=== PATIENT | female | born 1935 | race Caucasian/White ===

== ENCOUNTER 2016-11-04 22:02 | Inpatient (IN) | payer MEDICARE, MEDICAID ==
[~2016-11-04] VITALS: Ht 154.9 cm; Wt 73.4 kg
[~2016-11-04 22:02] MED LIST: ALLO100T30 PO; ASPI-621 PO; ASPI325T4 PO; ATOR40TA PO; BUSP10TA PO; CARV-39 PO; CLOP75TA PO; DIAZ5TAB PO; DOCU-30 PO; DOXY100T9 PO; DULO60CA7 PO; FURO20TA3 PO; GABA-827 PO; HYDR-3144 PO; HYDR20TA19 PO; IBUP-1222 PO; INSU100I13 SQ; INSU100I18 SQ-INSULIN; IPRA3AMP INH; ISOS30TA8 PO; LIDO700A30 TP; LORA-170 PO; MECL-76 PO; METF10002 PO; METF500T4 PO; METH500T7 PO; NIFE20CA PO; NITR0.4T SL; OLOP2.5D OP; OMEP20TA62 PO; PRED20TA PO; RANI150T8 PO; SULF1TAB24 PO; THYR48.7 PO; THYR60TA PO; THYR90TA PO; TIZA2CAP PO; VALS160T3 PO; lidocaine patch TP
[2016-11-04] MEDS ORDERED: SODIUM CHLORIDE 0.9% 1,000 ML IV ONE (22:44)
[2016-11-04] MEDS ORDERED: SODIUM CHLORIDE 0.9% 1,000ML IVBOLUS ONE (23:00)
[2016-11-04] MEDS ORDERED: ACETAMINOPHEN 500 MG TABLET PO ONE (23:00)
[2016-11-04] MEDS ORDERED: SODIUM CHLORIDE FLUSH 10ML SYR IVF ONE (23:00)
[2016-11-04] MEDS ORDERED: ONDANSETRON 2MG/ML, 2ML IVPush ONE (23:00)
[2016-11-04 23:36] LABS: PATH.CAST-FLAG NOT PRESENT; SPERM-FLAG NOT PRESENT; SRC-FLAG NOT PRESENT; XTAL-FLAG NOT PRESENT; YLC-FLAG NOT PRESENT
[2016-11-04 23:48] LABS: HEMATOCRIT 31.2 % (34.6-47.8); HEMOGLOBIN 9.9 g/dL (11.7-16.4)
[2016-11-04] MEDS ORDERED: CEFTRIAXONE PMX 1GM/50ML 50 ML ONE (23:53)
[2016-11-04] MEDS ORDERED: ONDANSETRON 2MG/ML, 2ML ONE (23:53)
[2016-11-04] MEDS ORDERED: ACETAMINOPHEN 500 MG TABLET ONE (23:53)
[2016-11-05] MEDS ORDERED: CEFTRIAXONE PMX 1GM/50ML 50 ML IV ONE
[2016-11-05 00:01] LABS: ASPARTATE AMINO TRANSFERASE 25 U/L (15-37); BLOOD UREA NITROGEN 22 mg/dL (7-18)
[2016-11-05] MEDS ORDERED: SODIUM CHLORIDE 0.9% 1,000ML IVBOLUS ONE (00:30)
[2016-11-05] MEDS: SODIUM CHLORIDE 0.9% 1,000 ML IV SCH ×2 (00:35→09:29)
[2016-11-05] MEDS ORDERED: ACETAMINOPHEN 325 MG TABLET PO PRN (01:00)
[2016-11-05] MEDS ORDERED: ONDANSETRON 2MG/ML, 2ML IVPush PRN (01:00)
[2016-11-05] MEDS: HEPARIN 5,000 UNITS/ML, 1ML SQ SCH ×3 (01:00→17:00)
[2016-11-05 03:00] VITALS: BP 95/51
[2016-11-05] MEDS ORDERED: CLOP75TA22 PO (03:49)
[2016-11-05] MEDS: CEFTRIAXONE PMX 1GM/50ML 50 ML IV SCH (09:29)
[2016-11-05 14:58] VITALS: BP 121/83
[2016-11-05 20:16] VITALS: BP 157/77
[2016-11-05] MEDS: GABAPENTIN 400 MG CAPSULE PO SCH (20:19)
[2016-11-05] MEDS: ALLOPURINOL 100 MG TABLET PO SCH (20:19)
[2016-11-05] MEDS: CARVEDILOL 25 MG TABLET PO SCH (20:19)
[2016-11-05] MEDS ORDERED: FAMOTIDINE 20 MG TABLET PO SCH (21:00)
[2016-11-06] MEDS: HEPARIN 5,000 UNITS/ML, 1ML SQ SCH ×3 (01:29→17:00)
[2016-11-06] MEDS: SODIUM CHLORIDE 0.9% 1,000 ML IV SCH ×2 (01:29→08:15)
[2016-11-06 01:36] VITALS: BP 144/66
[2016-11-06 05:06] LABS: HEMATOCRIT 28.6 % (34.6-47.8); HEMOGLOBIN 9.2 g/dL (11.7-16.4); WHITE BLOOD COUNT 7.3 x10^3/uL (3.4-10)
[2016-11-06 05:16] LABS: BLOOD UREA NITROGEN 14 mg/dL (7-18)
[2016-11-06] MEDS ORDERED: MAGNESIUM SULFATE PMX 4GM/100M 100 ML IV ONE (06:00)
[2016-11-06 06:53] VITALS: BP 151/81
[2016-11-06] MEDS: HYDROCODONE BITARTRATE 20 MG PO SCH (09:00)
[2016-11-06] MEDS ORDERED: POTASSIUM CHLORIDE 20 MEQ TAB.ER.PRT PO ONE (09:00)
[2016-11-06] MEDS: NIFEDIPINE 30 MG PO SCH ×2 (09:00→21:00)
[2016-11-06] MEDS: CEFTRIAXONE PMX 1GM/50ML 50 ML IV SCH (09:31)
[2016-11-06] MEDS: HYDROcodone/APAP 10/325 MG TABLET PO PRN ×2 (09:31→16:46)
[2016-11-06] MEDS: ALLOPURINOL 100 MG TABLET PO SCH ×2 (09:31→21:20)
[2016-11-06] MEDS: FAMOTIDINE 20 MG TABLET PO SCH (09:32)
[2016-11-06] MEDS: CARVEDILOL 25 MG TABLET PO SCH ×2 (09:32→21:20)
[2016-11-06] MEDS: BUSPIRONE 10 MG TABLET PO SCH (09:32)
[2016-11-06] MEDS: ISOSORBIDE MONONITRATE ER 30 MG TABLET PO SCH (10:57)
[2016-11-06] MEDS: CLOPIDOGREL 75 MG TABLET PO SCH (10:59)
[2016-11-06] MEDS: MECLIZINE CHEWABLE 25 MG TAB PO SCH ×3 (11:00→21:20)
[2016-11-06] MEDS: METHOCARBAMOL 500 MG TABLET PO PRN ×2 (11:01→21:21)
[2016-11-06] MEDS: VALSARTAN 160 MG TABLET PO SCH (11:02)
[2016-11-06 13:30] VITALS: BP 142/76
[2016-11-06 19:18] VITALS: BP 137/72
[2016-11-06] MEDS ORDERED: ACETAMINOPHEN 325 MG TABLET PO PRN (20:30)
[2016-11-06] MEDS: ATORVASTATIN 40 MG TABLET PO SCH (21:20)
[2016-11-06] MEDS: GABAPENTIN 400 MG CAPSULE PO SCH (21:20)
[2016-11-07] MEDS: HEPARIN 5,000 UNITS/ML, 1ML SQ SCH ×3 (01:00→17:00)
[2016-11-07 01:10] VITALS: BP 129/68
[2016-11-07] MEDS: SODIUM CHLORIDE 0.9% 1,000 ML IV SCH ×2 (03:24→10:22)
[2016-11-07] MEDS: MECLIZINE CHEWABLE 25 MG TAB PO SCH ×4 (05:49→19:49)
[2016-11-07 05:59] LABS: BLOOD UREA NITROGEN 12 mg/dL (7-18)
[2016-11-07 07:02] VITALS: BP 165/74
[2016-11-07] MEDS: HYDROCODONE BITARTRATE 20 MG PO SCH (09:00)
[2016-11-07] MEDS: NIFEDIPINE 30 MG PO SCH ×2 (09:00→19:53)
[2016-11-07] MEDS: VALSARTAN 160 MG TABLET PO SCH (10:25)
[2016-11-07] MEDS: FAMOTIDINE 20 MG TABLET PO SCH (10:25)
[2016-11-07] MEDS: HYDROcodone/APAP 10/325 MG TABLET PO PRN ×2 (10:25→21:31)
[2016-11-07] MEDS: ALLOPURINOL 100 MG TABLET PO SCH ×2 (10:25→19:49)
[2016-11-07] MEDS: CEFTRIAXONE PMX 1GM/50ML 50 ML IV SCH (10:25)
[2016-11-07] MEDS: CLOPIDOGREL 75 MG TABLET PO SCH (10:25)
[2016-11-07] MEDS: ISOSORBIDE MONONITRATE ER 30 MG TABLET PO SCH (10:26)
[2016-11-07] MEDS: CARVEDILOL 25 MG TABLET PO SCH ×2 (10:26→19:49)
[2016-11-07] MEDS: BUSPIRONE 10 MG TABLET PO SCH (10:28)
[2016-11-07 12:50] VITALS: BP 148/70
[2016-11-07 19:09] VITALS: BP 158/72
[2016-11-07] MEDS: ATORVASTATIN 40 MG TABLET PO SCH (19:49)
[2016-11-07] MEDS: GABAPENTIN 400 MG CAPSULE PO SCH (19:49)
[2016-11-07] MEDS: METHOCARBAMOL 500 MG TABLET PO PRN (19:49)
[2016-11-07] MEDS ORDERED: TEMAZEPAM 15 MG CAPSULE PO PRN (23:30)
[2016-11-08] MEDS: SODIUM CHLORIDE 0.9% 1,000 ML IV SCH ×2 (00:49→08:26)
[2016-11-08] MEDS: HEPARIN 5,000 UNITS/ML, 1ML SQ SCH ×2 (00:49→08:27)
[2016-11-08 01:08] VITALS: BP 147/68
[2016-11-08] MEDS: MECLIZINE CHEWABLE 25 MG TAB PO SCH (05:43)
[2016-11-08 07:03] VITALS: BP 163/71
[2016-11-08] MEDS ORDERED: CEFD300C37 PO (08:17)
[2016-11-08] MEDS: FAMOTIDINE 20 MG TABLET PO SCH (08:25)
[2016-11-08] MEDS: VALSARTAN 160 MG TABLET PO SCH (08:25)
[2016-11-08] MEDS: CEFTRIAXONE PMX 1GM/50ML 50 ML IV SCH (08:25)
[2016-11-08] MEDS: ALLOPURINOL 100 MG TABLET PO SCH (08:25)
[2016-11-08] MEDS: ISOSORBIDE MONONITRATE ER 30 MG TABLET PO SCH (08:25)
[2016-11-08] MEDS: CLOPIDOGREL 75 MG TABLET PO SCH (08:25)
[2016-11-08] MEDS: HYDROCODONE BITARTRATE 20 MG PO SCH (08:26)
[2016-11-08] MEDS: CARVEDILOL 25 MG TABLET PO SCH (08:26)
[2016-11-08] MEDS: NIFEDIPINE 30 MG PO SCH (08:26)
[2016-11-08] MEDS: BUSPIRONE 10 MG TABLET PO SCH (08:26)
== END 2016-11-08 12:14 | disposition home or self-care (01) | DRG 871 ==
LOC: ED 11-05 00:30 → EDIP 11-05 00:40 → 3NE 11-05 01:45
PROVIDERS: ADMIT Internal Medicine; ATTEND Internal Medicine
PROC: 0T9B70Z Drainage of Bladder with Drainage Device, Via Natural or Artificial Opening (ICD-10-PCS; principal; 2016-11-04)
DX: A41.9 Sepsis, unspecified organism (principal); G93.40 Encephalopathy, unspecified; E44.1 Mild protein-calorie malnutrition; N17.9 Acute kidney failure, unspecified; E11.40 Type 2 diabetes mellitus with diabetic neuropathy, unspecified; E78.5 Hyperlipidemia, unspecified; F17.210 Nicotine dependence, cigarettes, uncomplicated; G89.4 Chronic pain syndrome; I10 Essential (primary) hypertension; I25.10 Atherosclerotic heart disease of native coronary artery without angina pectoris; N30.91 Cystitis, unspecified with hematuria; Z68.30 Body mass index [BMI] 30.0-30.9, adult; Z79.4 Long term (current) use of insulin; Z95.1 Presence of aortocoronary bypass graft; Z88.0 Allergy status to penicillin; Z88.1 Allergy status to other antibiotic agents; Z91.040 Latex allergy status
CPT/HCPCS: 36415; 71010; 80048; 80053; 81001; 82962; 83605; 83735; 84145; 85025; 85610; 85730; 87040; 87077; 87086; 87186; 96374; J0696; J1644; J2405; J3475; J7030

== ENCOUNTER 2018-02-15 12:24 | Emergency (ER) | payer MEDICARE, MEDICAID ==
[~2018-02-15] VITALS: Ht 157.5 cm; Wt 54.0 kg
[~2018-02-15 12:24] MED LIST changes: +ASPI325T17 PO; -ASPI325T4 PO; +CEFD300C37 PO; +CLOP75TA52 PO; +DOCU-131 PO; -DOCU-30 PO; -HYDR-3144 PO; +HYDR-3245 PO; -IPRA3AMP INH; +IPRA3AMP30 INH; +METF500T17 PO; -METF500T4 PO; +RANI150T23 PO; -RANI150T8 PO
[2018-02-15 13:15] LABS: BASOPHILS # (AUTO) 0.02 x10^3/uL (0-0.1); BASOPHILS % (AUTO) 0 % (0-1); EOSINOPHILS # (AUTO) 0.25 x10^3/uL (0-0.4); EOSINOPHILS % (AUTO) 3 % (1-7); LYMPHOCYTES % (AUTO) 19 % (22-44); MD NO; MEAN CORPUSCULAR HEMOGLOBIN 30.4 pg (27.0-34.8); MEAN CORPUSCULAR HGB CONC 32.3 g/dL (32.4-35.8); MEAN CORPUSCULAR VOLUME 94.3 fL (80-100); MEAN PLATELET VOLUME 7.2 fL (7.4-10.4); MONOCYTES # (AUTO) 0.84 x10^3/uL (0.2-0.8); MONOCYTES % (AUTO) 10 % (2-9); NEUTROPHILS # (AUTO) 5.52 x10^3/uL (1.8-6.8); NEUTROPHILS % (AUTO) 67 % (42-75); PLATELET COUNT 300 x10^3/uL (130-400); RED BLOOD COUNT 3.09 x10^6/uL (3.82-5.3); RED CELL DISTRIBUTION WIDTH 20.9 % (9.6-15.2)
[2018-02-15 13:26] LABS: ALBUMIN 3.1 g/dL (3.4-5.0); ANION GAP 8 mmol/L (5-15); CALCIUM 9.4 mg/dL (8.5-10.1); CHLORIDE 113 mmol/L (98-107); CREATININE 1.78 mg/dL (0.55-1.02)
[2018-02-15 13:27] LABS: INTERNATIONAL NORMALIZED RATIO 1.02 (0.93-1.1); PROTHROMBIN TIME 10.6 Seconds (9.6-11.5)
[2018-02-15 15:55] VITALS: BP 103/51
== END 2018-02-15 15:58 | disposition home or self-care (01) ==
LOC: ED 14:57
DX: K92.2 Gastrointestinal hemorrhage, unspecified (principal); F17.200 Nicotine dependence, unspecified, uncomplicated; E11.9 Type 2 diabetes mellitus without complications; I10 Essential (primary) hypertension; E78.5 Hyperlipidemia, unspecified; I25.10 Atherosclerotic heart disease of native coronary artery without angina pectoris; E07.9 Disorder of thyroid, unspecified; Z72.9 Problem related to lifestyle, unspecified; Z88.0 Allergy status to penicillin; Z88.1 Allergy status to other antibiotic agents; Z90.49 Acquired absence of other specified parts of digestive tract; Z90.89 Acquired absence of other organs
CPT/HCPCS: 36415; 71046; 80048; 82040; 85025; 85610; 85730; 99285

== ENCOUNTER → 2019-10-23 | Outpatient (CLI) | payer MEDICARE, MEDICAID ==
[~2019-10-23] MED LIST changes: +ACID1TAB7 PO; +ASPI-515 PO; -ASPI-621 PO; +ASPI81TA45 PO; +DOXY-162 PO; -DOXY100T9 PO; +DULO60CA56 PO; +HYDR-3240 PO; +LOSA100T2 PO; +NICO-487 TD; -NITR0.4T SL; +NITR0.4T41 SL; -OLOP2.5D OP; +OLOP2.5D12 OP; +PANT20TA2 PO; +POLY17PO5 PO; +RANI-467 PO; -RANI150T23 PO; +SPIR25TA5 PO; +TIZA4CAP PO
== END | disposition home or self-care (01) ==
LOC: CFH 15:06 → EDSTATUS 15:30
PROVIDERS: ATTEND Pain Medicine Interventional Pain Medicine
DX: S32.019A Unspecified fracture of first lumbar vertebra, initial encounter for closed fracture (principal); M47.815 Spondylosis without myelopathy or radiculopathy, thoracolumbar region; M47.816 Spondylosis without myelopathy or radiculopathy, lumbar region; M48.061 Spinal stenosis, lumbar region without neurogenic claudication; M43.16 Spondylolisthesis, lumbar region; X58.XXXA Exposure to other specified factors, initial encounter; Y93.89 Activity, other specified; Y92.89 Other specified places as the place of occurrence of the external cause; Y99.8 Other external cause status
CPT/HCPCS: 72146; 72148

== ENCOUNTER 2020-08-29 11:58 | Inpatient (IN) | payer MEDICARE, MEDICAID ==
[~2020-08-29] VITALS: Ht 154.9 cm; Wt 60.1 kg
[~2020-08-29 11:58] MED LIST changes: -ASPI-515 PO; +ASPI-963 PO; +HYDR-2214 PO; -HYDR-3240 PO; -HYDR-3245 PO; +HYDR1TAB53 PO; +METH-639 PO; -METH500T7 PO; -NICO-487 TD; +NICO-587 TD; +SULF-23 PO; -SULF1TAB24 PO
--- NOTE | 2020-08-29 12:20 | NUR ---
Pt brought from lobby to room 19 by wheelchair for triage in room. Pt speaks limited Togolese and her son is will be brought back to assist with translation when he gets back from parking the car. avionics repair technician with this RN to assist with movement of pt from wheelchair to bed.
--- NOTE | 2020-08-29 12:25 | NUR ---
Son arrived at bedside, states pt has dx of proximal R femur fx from fall 2 weeks ago with pain intractable at home with PO meds as reason for coming in today. Supposed to follow up with ortho, trying to avoid surgery, and pt able to transfer herself with minimal assistance. Good distal CMS on R foot present on assessment. Pt changed into gown and placed on bedside monitor. Call light in reach, warm blankets and char filter operator socks provided, and senior quality manager including Med Rec completed.
[2020-08-29] MEDS ORDERED: NIFE10CA49 PO (12:33)
[2020-08-29] MEDS ORDERED: LEVO88TA4 PO (12:33)
[2020-08-29] MEDS ORDERED: CHOL-6 PO (12:33)
[2020-08-29] MEDS ORDERED: ONDA4TAB7 PO (12:33)
[2020-08-29] MEDS ORDERED: METF500T17 PO (12:33)
[2020-08-29] MEDS ORDERED: oxygen INH (12:33)
[2020-08-29] MEDS ORDERED: HYDR40TA PO (12:33)
[2020-08-29] MEDS ORDERED: LIOT5TAB11 PO (12:33)
--- NOTE | 2020-08-29 13:02 | NUR ---
Pt still awaiting MD exam at this time.
[2020-08-29] MEDS ORDERED: SODIUM CHLORIDE FLUSH 10ML SYR IVF ONE (13:30)
[2020-08-29] MEDS ORDERED: MORPHINE SULFATE 4 MG/ML, 1ML IVPush ONE (13:30)
[2020-08-29] MEDS ORDERED: ONDANSETRON 2MG/ML, 2ML IVPush ONE (13:30)
[2020-08-29] MEDS ORDERED: ONDANSETRON 2MG/ML, 2ML ONE (13:34)
[2020-08-29] MEDS ORDERED: MORPHINE SULFATE 4 MG/ML, 1ML ONE ×2 (13:35→16:08)
--- NOTE | 2020-08-29 13:48 | NUR ---
IV started with aseptic technique and Zofran given as ordered. Morphine started with 4mg IVP at this time to see how pt responds before giving her the other 4mg as ordered. Son remains at bedside. Pt asking for food/coffee.
--- NOTE | 2020-08-29 13:55 | NUR ---
Pain still 8/10, so other 4mg for total of 8m IVP Morphine given.
--- NOTE | 2020-08-29 14:08 | NUR ---
Pain is now rated 6/10 after pain meds with no nausea. MD states no food/drink until after radiology exams. Son and pt notified and aware of pending xrays.
--- NOTE | 2020-08-29 15:21 | NUR ---
at bedside for discussion of results and plan of care.
[2020-08-29] MEDS ORDERED: MORPHINE SULFATE 4 MG/ML, 1ML IVPush PRN (15:30)
[2020-08-29 15:46] LABS: BASOPHILS % (AUTO) 1 % (0-1); EOSINOPHILS % (AUTO) 2 % (1-7); LYMPHOCYTES % (AUTO) 21 % (22-44); MEAN CORPUSCULAR HEMOGLOBIN 33.3 pg (27.0-34.8); MEAN CORPUSCULAR HGB CONC 33.3 g/dL (32.4-35.8); MEAN PLATELET VOLUME 6.9 fL (7.4-10.4); MONOCYTES % (AUTO) 10 % (2-9); NEUTROPHILS % (AUTO) 67 % (42-75); PLATELET COUNT 448 x10^3/uL (130-400); RED BLOOD COUNT 3.78 x10^6/uL (3.82-5.3); RED CELL DISTRIBUTION WIDTH 14.1 % (9.6-15.2)
[2020-08-29 15:47] LABS: MD NO
[2020-08-29 15:58] LABS: ANION GAP 5 mmol/L (5-15); CALCIUM 9.9 mg/dL (8.5-10.1); CHLORIDE 112 mmol/L (98-107); CREATININE 1.31 mg/dL (0.55-1.02)
--- NOTE | 2020-08-29 16:10 | NUR ---
Pt declined repeat Morphine admin at this time. Pt instructed to call for RN when she decides she needs more pain medication.
--- NOTE | 2020-08-29 16:24 | NUR ---
Report to meal break RN and care transferred.
--- NOTE | 2020-08-29 16:55 | NUR ---
Report received and care reassumed. Noted room assignment with RN for report on ED board.
--- NOTE | 2020-08-29 17:04 | NUR ---
Attempt to call report unsuccessful as RN is not available and will call back.
--- NOTE | 2020-08-29 17:25 | NUR ---
Report given to MILTON Clemente and pt readied for transfer.
[2020-08-29] MEDS ORDERED: HYDROcodone/APAP 5/325 TABLET PO PRN (18:00)
[2020-08-29 18:28] LABS: INTERNATIONAL NORMALIZED RATIO 1.02 (0.93-1.1); PROTHROMBIN TIME 10.9 Seconds (9.6-11.5)
[2020-08-29] MEDS ORDERED: ONDANSETRON ODT 4 MG PO PRN (18:30)
[2020-08-29] MEDS ORDERED: ONDANSETRON 2MG/ML, 2ML IVPush PRN (18:30)
[2020-08-29] MEDS ORDERED: NITROGLYCERIN 0.4 MG BOTTLE (25 TABS) SL PRN (18:30)
[2020-08-29 19:30] LABS: ANION GAP 6 mmol/L (5-15); CALCIUM 9.7 mg/dL (8.5-10.1); CHLORIDE 110 mmol/L (98-107); CREATININE 1.39 mg/dL (0.55-1.02)
[2020-08-29] MEDS ORDERED: ALBUTEROL/IPRATROPIUM 2.5MG/0.5MG, 3 ML NPPB PRN (20:30)
[2020-08-29] MEDS: ATORVASTATIN 40 MG TABLET PO SCH ×2 (21:00→22:18)
[2020-08-29] MEDS: CARVEDILOL 25 MG TABLET PO SCH ×2 (21:00→22:18)
[2020-08-29 21:17] VITALS: BP 106/72
[2020-08-29] MEDS: DULOXETINE 30 MG CAPSULE.DR PO SCH ×2 (22:00→22:18)
[2020-08-29] MEDS: morphine SULFATE 10 MG/ML, 1ML IVPush PRN (22:19)
[2020-08-29] MEDS ORDERED: PANTOPRAZOLE 20MG TABLET ONE (22:27)
[2020-08-29] MEDS: PANTOPRAZOLE 20MG TABLET PO SCH (22:28)
[2020-08-30 00:13] VITALS: BP 114/73
[2020-08-30] MEDS: LEVOTHYROXINE 88 MCG TABLET PO SCH (06:00)
[2020-08-30] MEDS: morphine SULFATE 10 MG/ML, 1ML IVPush PRN ×3 (06:16→21:37)
[2020-08-30 06:28] LABS: BASOPHILS % (AUTO) 1 % (0-1); EOSINOPHILS % (AUTO) 3 % (1-7); LYMPHOCYTES % (AUTO) 24 % (22-44); MEAN CORPUSCULAR HEMOGLOBIN 33.3 pg (27.0-34.8); MEAN CORPUSCULAR HGB CONC 32.8 g/dL (32.4-35.8); MEAN PLATELET VOLUME 7.2 fL (7.4-10.4); MONOCYTES % (AUTO) 12 % (2-9); NEUTROPHILS % (AUTO) 60 % (42-75); PLATELET COUNT 431 x10^3/uL (130-400); RED BLOOD COUNT 3.57 x10^6/uL (3.82-5.3); RED CELL DISTRIBUTION WIDTH 14.1 % (9.6-15.2)
[2020-08-30 06:46] LABS: MD NO
[2020-08-30 08:09] VITALS: BP 129/77
[2020-08-30] MEDS ORDERED: PANTOPRAZOLE 20MG TABLET PO SCH (09:00)
[2020-08-30] MEDS: CLOPIDOGREL 75 MG TABLET PO SCH (09:00)
[2020-08-30] MEDS: CARVEDILOL 25 MG TABLET PO SCH ×2 (10:01→20:12)
[2020-08-30] MEDS ORDERED: FENTANYL PF 100 MCG/2ML ONE ×3 (10:54→12:22)
[2020-08-30] MEDS ORDERED: SODIUM BICARBONATE 1 MEQ/ML, 50ML VIAL ONE (10:59)
[2020-08-30] MEDS ORDERED: HYDROcodone/APAP 7.5-325MG/15ML UDC PO PRN (11:30)
[2020-08-30] MEDS ORDERED: HYDROmorphone 1 MG/ML, 1ML INJ IVPush PRN (11:30)
[2020-08-30] MEDS ORDERED: OXYcodone 5 MG/5 ML ORAL.SOL UDC PO PRN (11:30)
[2020-08-30] MEDS ORDERED: MEPERIDINE/PF 25MG/0.5ML IVPush PRN (11:30)
[2020-08-30] MEDS ORDERED: ONDANSETRON 2MG/ML, 2ML IVPush PRN (11:30)
[2020-08-30] MEDS ORDERED: BUPIVACAINE/PF 0.5% INFIL ONE (11:35)
[2020-08-30] MEDS ORDERED: DEXAMETHASONE 4 MG/ML, 1ML ONE (11:53)
[2020-08-30] MEDS ORDERED: PROPOFOL 10 MG/ML, 20ML ONE (11:53)
[2020-08-30] MEDS ORDERED: SUCCINYLCHOLINE 20 MG/ML, 10ML ONE (11:53)
[2020-08-30] MEDS ORDERED: ONDANSETRON 2MG/ML, 2ML ONE (11:53)
[2020-08-30] MEDS ORDERED: GLYCOPYRROLATE 0.2MG/1ML, 5ML ONE (11:53)
[2020-08-30] MEDS ORDERED: NEOSTIGMINE 1 MG/ML, 10ML ONE (11:53)
[2020-08-30] MEDS ORDERED: CEFAZOLIN 1,000 MG ONE (11:53)
[2020-08-30] MEDS ORDERED: ROCURONIUM 10MG/ML,5ML ONE (11:53)
[2020-08-30] MEDS ORDERED: OXYcodone 5 MG/5 ML ORAL.SOL UDC ONE (12:04)
[2020-08-30] MEDS: FENTANYL PF 100 MCG/2ML IV PRN ×6 (12:10→12:40)
[2020-08-30 13:10] VITALS: BP 144/62
[2020-08-30] MEDS: ISOSORBIDE MONONITRATE ER 30 MG TABLET PO SCH (14:19)
[2020-08-30] MEDS: LIOTHYRONINE 5 MCG TABLET PO SCH (14:20)
[2020-08-30 15:30] LABS: MICROSCOPIC AUTO
[2020-08-30] MEDS ORDERED: BENZONATATE 100 MG CAPSULE PO PRN (16:30)
[2020-08-30 19:35] VITALS: BP 94/52
[2020-08-30] MEDS: ATORVASTATIN 40 MG TABLET PO SCH (20:12)
[2020-08-30] MEDS: PANTOPRAZOLE 20MG TABLET PO SCH (20:12)
[2020-08-30] MEDS: DULOXETINE 30 MG CAPSULE.DR PO SCH (20:12)
[2020-08-30] MEDS: CEFAZOLIN PMX 1GM/50ML 50 ML IV SCH (20:13)
[2020-08-30] MEDS: MELATONIN 5 MG TABLET PO PRN (22:34)
[2020-08-31] MEDS: HYDROcodone/APAP 10/325 MG TABLET PO PRN ×4 (01:44→18:00)
[2020-08-31 01:48] VITALS: BP 110/68
[2020-08-31] MEDS: CEFAZOLIN PMX 1GM/50ML 50 ML IV SCH (03:52)
[2020-08-31] MEDS: LEVOTHYROXINE 88 MCG TABLET PO SCH (05:36)
[2020-08-31 05:46] LABS: BASOPHILS % (AUTO) 0 % (0-1); EOSINOPHILS % (AUTO) 0 % (1-7); LYMPHOCYTES % (AUTO) 8 % (22-44); MEAN CORPUSCULAR HEMOGLOBIN 34.1 pg (27.0-34.8); MEAN CORPUSCULAR HGB CONC 33.8 g/dL (32.4-35.8); MEAN PLATELET VOLUME 7.7 fL (7.4-10.4); MONOCYTES % (AUTO) 10 % (2-9); NEUTROPHILS % (AUTO) 82 % (42-75); PLATELET COUNT 364 x10^3/uL (130-400); RED BLOOD COUNT 3.07 x10^6/uL (3.82-5.3); RED CELL DISTRIBUTION WIDTH 13.8 % (9.6-15.2)
[2020-08-31 05:53] LABS: CHLORIDE 107 mmol/L (98-107)
[2020-08-31 05:58] LABS: ANION GAP 5 mmol/L (5-15); CALCIUM 9.2 mg/dL (8.5-10.1); CREATININE 1.35 mg/dL (0.55-1.02)
[2020-08-31 06:03] LABS: MD NO
[2020-08-31 07:21] VITALS: BP 99/60
[2020-08-31 10:35] VITALS: BP 135/90
[2020-08-31] MEDS: morphine SULFATE 10 MG/ML, 1ML IVPush PRN ×2 (10:37→20:55)
[2020-08-31] MEDS: CARVEDILOL 25 MG TABLET PO SCH ×2 (10:43→20:45)
[2020-08-31] MEDS: SPIRONOLACTONE 25 MG TABLET PO SCH (10:44)
[2020-08-31] MEDS: ISOSORBIDE MONONITRATE ER 30 MG TABLET PO SCH (10:44)
[2020-08-31] MEDS: LIOTHYRONINE 5 MCG TABLET PO SCH (10:44)
[2020-08-31] MEDS: LOSARTAN 50MG TABLET PO SCH (10:44)
[2020-08-31] MEDS: CLOPIDOGREL 75 MG TABLET PO SCH (10:44)
[2020-08-31] MEDS ORDERED: POLYETHYLENE GLYCOL 17 GM PACKET PO PRN (13:30)
[2020-08-31] MEDS ORDERED: BISACODYL 10 MG SUPP PR PRN (13:30)
[2020-08-31] MEDS ORDERED: CEFTRIAXONE 1,000 MG in DEXTROSE 5% 50 ML IVPB SCH (15:00)
[2020-08-31] MEDS: ENOXAPARIN 30 MG/0.3 ML SQ SCH (15:24)
[2020-08-31] MEDS: SENNA/DOCUSATE TABLET PO SCH (15:24)
[2020-08-31 15:58] VITALS: BP 124/71
[2020-08-31] MEDS ORDERED: PHENYLEPHRINE 10 MG/ML ONE (16:32)
[2020-08-31] MEDS: metFORMIN 500 MG TABLET PO SCH (17:58)
[2020-08-31 19:26] VITALS: BP 110/65
[2020-08-31] MEDS: MELATONIN 5 MG TABLET PO PRN (20:45)
[2020-08-31] MEDS: PANTOPRAZOLE 20MG TABLET PO SCH (20:45)
[2020-08-31] MEDS: DULOXETINE 30 MG CAPSULE.DR PO SCH (20:45)
[2020-08-31] MEDS: ATORVASTATIN 40 MG TABLET PO SCH (20:45)
[2020-09-01 03:12] VITALS: BP 154/75
[2020-09-01] MEDS: morphine SULFATE 10 MG/ML, 1ML IVPush PRN ×2 (03:23→11:51)
[2020-09-01] MEDS: LEVOTHYROXINE 88 MCG TABLET PO SCH (06:11)
[2020-09-01 06:15] VITALS: BP 144/84
[2020-09-01 07:44] VITALS: BP 156/83
[2020-09-01] MEDS: metFORMIN 500 MG TABLET PO SCH ×2 (08:50→17:16)
[2020-09-01] MEDS: HYDROcodone/APAP 10/325 MG TABLET PO PRN ×3 (08:51→21:50)
[2020-09-01] MEDS: CLOPIDOGREL 75 MG TABLET PO SCH (08:51)
[2020-09-01] MEDS: LIOTHYRONINE 5 MCG TABLET PO SCH (08:51)
[2020-09-01] MEDS: ISOSORBIDE MONONITRATE ER 30 MG TABLET PO SCH (08:51)
[2020-09-01] MEDS: SPIRONOLACTONE 25 MG TABLET PO SCH (08:51)
[2020-09-01] MEDS: SENNA/DOCUSATE TABLET PO SCH (08:52)
[2020-09-01] MEDS: LOSARTAN 50MG TABLET PO SCH (08:52)
[2020-09-01] MEDS: CARVEDILOL 25 MG TABLET PO SCH ×2 (08:52→21:53)
[2020-09-01] MEDS ORDERED: OXYC5TAB98 PO (10:50)
[2020-09-01] MEDS ORDERED: SULF-16 PO (10:50)
[2020-09-01] MEDS ORDERED: OXYcodone IR 5MG TABLET PO PRN (11:00)
[2020-09-01] MEDS: SULFAMETH./TRIMETHOPRIM SS 400MG/80MG TABLET PO SCH ×2 (14:40→21:49)
[2020-09-01] MEDS: ENOXAPARIN 30 MG/0.3 ML SQ SCH (14:40)
[2020-09-01 19:45] VITALS: BP 147/83
[2020-09-01] MEDS: niFEDipine ER 30 MG TABLET.ER PO SCH (21:49)
[2020-09-01] MEDS: ATORVASTATIN 40 MG TABLET PO SCH (21:49)
[2020-09-01] MEDS: DULOXETINE 30 MG CAPSULE.DR PO SCH (21:49)
[2020-09-01] MEDS: PANTOPRAZOLE 20MG TABLET PO SCH (21:50)
[2020-09-01] MEDS: MELATONIN 5 MG TABLET PO PRN (21:50)
[2020-09-02 02:45] VITALS: BP 128/77
[2020-09-02 06:30] VITALS: BP 139/80
[2020-09-02] MEDS: HYDROcodone/APAP 10/325 MG TABLET PO PRN ×2 (07:04→17:00)
[2020-09-02] MEDS: LEVOTHYROXINE 88 MCG TABLET PO SCH (07:05)
[2020-09-02] MEDS: morphine SULFATE 10 MG/ML, 1ML IVPush PRN (07:53)
[2020-09-02] MEDS: metFORMIN 500 MG TABLET PO SCH ×2 (09:14→16:55)
[2020-09-02] MEDS: SULFAMETH./TRIMETHOPRIM SS 400MG/80MG TABLET PO SCH ×2 (09:14→21:43)
[2020-09-02] MEDS: ISOSORBIDE MONONITRATE ER 30 MG TABLET PO SCH (09:14)
[2020-09-02] MEDS: CLOPIDOGREL 75 MG TABLET PO SCH (09:14)
[2020-09-02] MEDS: SPIRONOLACTONE 25 MG TABLET PO SCH (09:14)
[2020-09-02] MEDS: LIOTHYRONINE 5 MCG TABLET PO SCH (09:14)
[2020-09-02] MEDS: SENNA/DOCUSATE TABLET PO SCH ×2 (09:14→09:18)
[2020-09-02] MEDS: CARVEDILOL 25 MG TABLET PO SCH ×2 (09:15→21:43)
[2020-09-02] MEDS: LOSARTAN 50MG TABLET PO SCH (09:15)
[2020-09-02 12:30] VITALS: BP 107/69
[2020-09-02] MEDS: ENOXAPARIN 30 MG/0.3 ML SQ SCH (14:53)
[2020-09-02] MEDS: INSULIN LISPRO 100 UNITS/ML, PEN SQ-INSULIN SCH ×2 (16:50→21:00)
[2020-09-02 20:24] VITALS: BP 100/64
[2020-09-02 21:40] VITALS: BP 122/75
[2020-09-02] MEDS: PANTOPRAZOLE 20MG TABLET PO SCH (21:43)
[2020-09-02] MEDS: niFEDipine ER 30 MG TABLET.ER PO SCH (21:43)
[2020-09-02] MEDS: ATORVASTATIN 40 MG TABLET PO SCH (21:43)
[2020-09-02] MEDS: DULOXETINE 30 MG CAPSULE.DR PO SCH (21:43)
[2020-09-03 02:05] VITALS: BP 114/70
[2020-09-03] MEDS: LEVOTHYROXINE 88 MCG TABLET PO SCH (05:14)
[2020-09-03] MEDS: HYDROcodone/APAP 10/325 MG TABLET PO PRN ×3 (05:14→14:28)
[2020-09-03] MEDS: INSULIN LISPRO 100 UNITS/ML, PEN SQ-INSULIN SCH ×3 (07:00→16:00)
[2020-09-03] MEDS: LOSARTAN 50MG TABLET PO SCH (08:42)
[2020-09-03] MEDS: SULFAMETH./TRIMETHOPRIM SS 400MG/80MG TABLET PO SCH (08:42)
[2020-09-03] MEDS: CLOPIDOGREL 75 MG TABLET PO SCH (08:42)
[2020-09-03] MEDS: LIOTHYRONINE 5 MCG TABLET PO SCH (08:43)
[2020-09-03] MEDS: CARVEDILOL 25 MG TABLET PO SCH (08:43)
[2020-09-03] MEDS: metFORMIN 500 MG TABLET PO SCH (08:43)
[2020-09-03] MEDS: SENNA/DOCUSATE TABLET PO SCH (08:43)
[2020-09-03] MEDS: ISOSORBIDE MONONITRATE ER 30 MG TABLET PO SCH (08:43)
[2020-09-03] MEDS: SPIRONOLACTONE 25 MG TABLET PO SCH (08:49)
[2020-09-03 08:53] VITALS: BP 127/79
[2020-09-03] MEDS ORDERED: SULF-16 PO (11:43)
[2020-09-03 13:33] VITALS: BP 129/75
[2020-09-03] MEDS: ENOXAPARIN 30 MG/0.3 ML SQ SCH ×2 (14:00→14:28)
[2020-09-03] MEDS ORDERED: metFORMIN 500 MG TABLET PO SCH (17:00)
== END 2020-09-03 17:40 | disposition home health service (06) | DRG 481 ==
LOC: ED 13:26 → EDIP 15:55 → SUATTDRO 16:16 → 4NE 18:00
PROVIDERS: ADMIT Hospitalist; ATTEND Family Medicine
PROC: 0QS634Z Reposition Right Upper Femur with Internal Fixation Device, Percutaneous Approach (ICD-10-PCS; principal; 2020-08-30 09:30)
DX: S72.001A Fracture of unspecified part of neck of right femur, initial encounter for closed fracture (principal); F11.20 Opioid dependence, uncomplicated; I50.32 Chronic diastolic (congestive) heart failure; J96.10 Chronic respiratory failure, unspecified whether with hypoxia or hypercapnia; N39.0 Urinary tract infection, site not specified; Z16.12 Extended spectrum beta lactamase (ESBL) resistance; W01.0XXA Fall on same level from slipping, tripping and stumbling without subsequent striking against object, initial encounter; B96.20 Unspecified Escherichia coli [E. coli] as the cause of diseases classified elsewhere; Z66 Do not resuscitate; E03.9 Hypothyroidism, unspecified; Z20.822 Contact with and (suspected) exposure to COVID-19; E11.9 Type 2 diabetes mellitus without complications; F17.200 Nicotine dependence, unspecified, uncomplicated; I11.0 Hypertensive heart disease with heart failure; I25.10 Atherosclerotic heart disease of native coronary artery without angina pectoris; J44.9 Chronic obstructive pulmonary disease, unspecified; K21.9 Gastro-esophageal reflux disease without esophagitis; M19.90 Unspecified osteoarthritis, unspecified site; G89.29 Other chronic pain; M54.9 Dorsalgia, unspecified; M25.40 Effusion, unspecified joint; Y92.009 Unspecified place in unspecified non-institutional (private) residence as the place of occurrence of the external cause; Z79.4 Long term (current) use of insulin; Z87.440 Personal history of urinary (tract) infections; Z95.1 Presence of aortocoronary bypass graft; Z90.49 Acquired absence of other specified parts of digestive tract; Z88.0 Allergy status to penicillin; Z88.1 Allergy status to other antibiotic agents; Z91.040 Latex allergy status; Z82.49 Family history of ischemic heart disease and other diseases of the circulatory system; Y99.8 Other external cause status; Y93.89 Activity, other specified
CPT/HCPCS: 36415; 76000; 80048; 81001; 82962; 83735; 85014; 85018; 85025; 85610; 87077; 87086; 87184; 87186; 87635; 93005; 96374; 96375; 99285; C1713; G0378; J0690; J0696; J1100; J1650; J2405; J2704; J2710; J3010; J0330; J2270; J2370